=== PATIENT | male | born 1955 ===

== ENCOUNTER 2017-04-23 22:28 | Emergency (ER) | payer MEDICARE ==
[~2017-04-23] VITALS: Ht 157.5 cm; Wt 63.6 kg
[2017-04-23 22:29] VITALS: BP 130/56; PULSE 77; RESP 17; O2SAT 97
--- NOTE | 2017-04-23 22:45 | ED.REPORT ---
HPI-Seizure Date of Service Apr 23, 2017 ED Provider: Dr. 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 The pt did not bite his tongue. He was incarcerated for 15 years and developed seizures during this time. The pt was recently released from nursing home and has family members he can stay with. Patient is a poor historian and difficult to understand mumbled speech. He states that he has some cardiac and respiratory history, denies DM. Nursing Notes Stated Complaint: SEIZURE Chief Complaint: Seizure Nursing Notes Reviewed: Yes Allergies: Coded Allergies: No Known Allergies (Unverified , 04/23/17) Scheduled Benztropine Mesylate (Benztropine Mesylate) 0.5 Mg Tablet 0.5 MG PO TID Fluoxetine (Fluoxetine) 20 Mg Capsule 20 MG PO DAILY Hydroxyzine Pamoate (Vistaril) 25 Mg Capsule 25 MG PO TID Risperidone (Risperidone) 3 Mg Tablet 3 MG PO BID General Time Seen by Provider: 22:45 Chief Complaint Chief Complaint: Seizure, focal Hx Obtained From: Daughter Arrived By: Ambulance Onset Occurred: Just prior to arrival Symptom Duration: Since onset Recent Healthcare: No recent doctor visit, No recent hospitalization Similar Sx Previous: No Past Medical History Past Medical History seizure disorder Past Surgical History unknown Smoking History Unknown if Ever Smoker Social History incarcerated for 15 years Other Social History: Good social support, Local resident Ambulatory Status Independent Review of Systems Neurologic: Reports: Seizure Complete sys rev & neg: except as marked. GI: Denies: Nausea, Vomiting Physical Exam Initial Vital Signs Vital Signs (First) Date Time Temp Pulse Resp B/P Pulse Ox O2 Delivery O2 Flow Rate FiO2 04/23/17 22:29 36.7 77 17 130/56 97 Room Air Initial VS: Reviewed General/Constitutional: Cooperative Alertness: Positive: Somnolent Neck: Atraumatic, Supple Respiratory / Chest: Atraumatic, Breath sounds NL, Breath sounds = bilat, No respiratory distress Cardiovascular: Heart rate NL, Regular rhythm, Heart sounds NL Neurologic: Oriented X3 Mental Status: Positive: Somnolent Head / Eyes: Atraumatic, Normocephalic, PERRL, EOMI ENT: Atraumatic, Airway patent, Mucous membranes moist Upper Extremity / MS: Atraumatic, Inspection NL, Full range of motion Lower Extremity / Pelvis / MS: Atraumatic, Inspection NL, Full range of motion Skin: Atraumatic, Color NL, No rash Interpretation & Diagnostics Lab Results Interpretation Result Diagram: 04/23/17222904/23/172229 Test 04/23/17 22:30 White Blood Count 13.6th/mm3 (3.8-10.1) Red Blood Count 5.02mil/mm3 (4.40-5.80) Hemoglobin 14.3g/dL (13.8-17.2) Hematocrit 40.7% (41.0-50.0) Mean Corpuscular Volume 81.1fL (81-100) Mean Corpuscular Hemoglobin 28.5pg (27.0-35.0) Mean Corpuscular Hemoglobin Concent 35.1% (32.0-37.0) Red Cell Distribution Width 16.1% (12.3-15.4) Platelet Count 341bil/L (150-400) Neutrophils (%) (Auto) 80.5% (40-74) Lymphocytes (%) (Auto) 13.3% (14-46) Monocytes (%) (Auto) 3.8% (4-12) Eosinophils (%) (Auto) 2.1% (0-5) Basophils (%) (Auto) 0.1% (0-3) Sodium Level 137mEq/L (134-144) Potassium Level 3.5mEq/L (3.5-5.2) Chloride Level 99mEq/L (97-108) Carbon Dioxide Level 20mmol/L (18-29) Blood Urea Nitrogen 18mg/dL (8-27) Creatinine 0.90mg/dL (0.76-1.27) Estimat Glomerular Filtration Rate 90mL/min (>59) Glucose Level 120mg/dL (60-99) Calcium Level 8.8mg/dL (8.5-10.1) Total Bilirubin 0.4mg/dL (0.0-1.2) Aspartate Amino Transf (AST/SGOT) 24U/L (0-50) Alanine Aminotransferase (ALT/SGPT) 15U/L (0-44) Alkaline Phosphatase 114U/L (25-160) Troponin T 0.010ug/L (0.0-0.011) Total Protein 7.2g/dL (6.4-8.4) Albumin 3.5g/dL (3.4-5.0) ECG Interpretation Time: 23:10 Interpreted by: ED physician Normal ECG Interpretation: Normal ECG w/ rate of... (66), Normal rate, Normal sinus rhythm, No acute ischemic changes, Normal QRS, Normal axis, Normal intervals CT Head Interpretation IMPRESSION: no acute abnormalities Study: Head CT no contrast Interpretation / Wet Read by: Interpret - Radiologist Re-Eval/Medical Decision Med Decision/Clinical Course 2249: Plan for IV Keppra and head CT. 2324: Head CT is normal, no acute abnormalities identified. 0042: Keppra administered effectively. Pt is hungry and decides he wants to leave. No indication for hospitalization. F/U and RTER warnings given. All questions addressed. Patient was observed until the postictal period had resolved. After about 2 hours he is awake alert oriented 4. His speech is rapid and articulate. He requested to be discharged. I did prescribe a 30 day course of Keppra and recommend close outpatient follow-up. Routine seizure aftercare instructions given Re-Evaluation/Progress #1: Time of Eval: 22:50 Re-Evaluation/Progress Note: Plan for IV kepra and head CT. Re-Evaluation/Progress #2: Re-Evaluation/Progress Note: Keppra administered effectively. Pt is hungry and decides he wants to leave. No indication for hospitalization. Head CT is normal, no acute abnormalities identified. F/U and RTER warnings given. All questions addressed. Counseled Regarding: Diagnosis, Lab results, Need for follow-up, When/why to return to ED Discharge & Departure Impression: Primary Impression: Seizure Disposition: Home Discharge Condition All VS Reviewed: Yes Condition: Stable Patient Instructions: Recurrent Seizures in Adults (ED) Additional Instructions: Thank you for entrusting us with your care today. Your labs were reassuring and your brain scan was normal. Do not dirve or participate in any activities that put you at risk for another seizure. Take Keppra twice daily. This dose may need to be increased in 2 weeks. Call the [facility] or the referred neurologist for a follow up appointment with in the next week. Return to the Emergency Department if you experience any new or worsening symptoms. I hope you feel better soon! Referrals: [facility] (PCP) [facility] Juan Miguel Carter MD Attestation Portion of this note were transcribed by Fabienne Monge. I, Dr. Vasques, personally performed the history, physical exam, and medical decision-making: I reviewed and confirmed the accuracy for the information in the transcribed note. Signed by: maame Cardona, 04/24/17 0030 copies to: [facility]; Juan Miguel Carter MD, Todd P DO Apr 23, 2017 22:45 Fabienne Monge Apr 23, 2017 22:54
[2017-04-23] MEDS ORDERED: levETIRAcetam Inj 1,000 MG in IV Premix 1 EACH IV ONE (22:50)
[2017-04-23 22:58] LABS: BASOPHILS % (AUTO) 0.1 % (0-3); EOSINOPHILS % (AUTO) 2.1 % (0-5); MONOCYTES % (AUTO) 3.8 % (4-12); Mean Corpuscular Hemoglobin 28.5 pg (27.0-35.0); Mean Corpuscular Volume 81.1 fL (81-100); NEUTROPHILS % (AUTO) 80.5 % (40-74); Platelet Count 341 bil/L (150-400)
[2017-04-23 23:08] LABS: TROPONIN T 0.01 ug/L (0.0-0.011)
[2017-04-23 23:32] VITALS: BP 132/50; PULSE 61; RESP 24; O2SAT 95
[2017-04-23] MEDS ORDERED: HYDR25CA PO (23:51)
[2017-04-23] MEDS ORDERED: RISP3TAB3 PO (23:51)
[2017-04-23] MEDS ORDERED: BENZ0.5T3 PO (23:51)
[2017-04-23] MEDS ORDERED: FLUO20CA25 PO (23:51)
[2017-04-24] MEDS ORDERED: Sodium Chloride LOK Flush 10 mL Syringe IVFLUSH SCH (00:30)
[2017-04-24 00:49] VITALS: BP 124/55; PULSE 68; RESP 16; O2SAT 97
--- NOTE | 2017-04-24 08:06 | DRSVH ---
PROCEDURE: CT BRAIN WITHOUT CONTRAST ([id number]) INDICATIONS: seizure TECHNIQUE: Noncontrast 4.5 mm thick angled axial sections acquired from the foramen magnum to the vertex, with c oronal reformats. COMPARISON: None. 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 CSF spaces: Basal cisterns are patent. No extra-axial fluid collections. Ventricles are normal in size and shape. Brain: No midline shift. No intracranial masses or hemorrhage. Gomez-white matter interface is norm al. Skull and face: Calvarium and visualized facial bones are intact, without suspicious lesions. Sinuses: Visualized sinuses and mastoids are clear. IMPRESSION: 1. No acute intracranial abnormality. Findings are concordant with the preliminary report. Dictated by: Serge Rodney M.D. on 04/24/2017 at 8:03 Approved by: Serge Rodney M.D. on 04/24/2017 at 8:04
== END 2017-04-24 00:50 | disposition home or self-care (01) ==
LOC: EDBD 22:28 → SED 22:28
DX: R56.9 Unspecified convulsions (principal)
CPT/HCPCS: 36415; 70450; 80053; 84484; 85025; 93005; 96374; 99285; J1953